=== PATIENT | female | born 1995 | race Caucasian/White ===

== ENCOUNTER 2018-10-20 19:05 | Emergency (ER) | payer BC ==
[2018-10-20] MEDS ORDERED: Lidocaine 1% w/Epinephrine 1:100K 20 ML VIAL ONE (20:12)
== END 2018-10-20 20:47 | disposition home or self-care (01) ==
LOC: ERS 19:05
DX: L02.413 Cutaneous abscess of right upper limb (principal); L03.113 Cellulitis of right upper limb
CPT/HCPCS: 10061; J2001